=== PATIENT | male | born 1965 | race Caucasian/White ===

== ENCOUNTER 2018-03-24 22:50 | Emergency (ER) | payer OTHER ==
[~2018-03-24] VITALS: Ht 180.3 cm; Wt 83.0 kg
[~2018-03-24 22:50] MED LIST: ALEVE PO; ALLEGRA ALLERG180 MG PO; AXIRON30 MG/1.5; SOMA350 MG PO; SUDAFED 12 HOU120 MG PO; TYLENOL COLD M1 EAC2 PO; TYLENOL WITH C1 EACH PO; VITA-C120 GM PO
--- OUTSIDE RECORDS SUMMARY | 2018-03-24 22:53 | XMS REPORT | Clinical Summary ---
Author Author [facility] Address Unknown Phone Unavailable Care Team Providers Care Mgmt Analyst Name Role Phone Kit Vargas MD PCP Allergies Not on File Current Medications Not on file Active Problems Not on file Social History Tobacco Use Types Packs/Day Years Used Date Never Assessed Sex Assigned at Date Recorded Not on file Last Filed Vital Signs Not on file Plan of Treatment Health Maintenance Due Date Last Done Comments COLON CANCER SCREENING 2014 SHINGRIX VACCINE (#1) 2014 INFLUENZA VACCINE 05/29/2018 07/28/2016, 08/06/2014, 08/01/2011 Results Not on fileafter 03/23/2017 Insurance Payer Benefit Subscriber ID Type Phone Address Plan / Group [facility] xxxxxxxxx HMO/PPO THCARE CHOICE/CHO ICE + Home: [id number] [place] [phone]
[2018-03-24 23:57] VITALS: BP 139/88
== END 2018-03-25 00:05 | disposition home or self-care (01) ==
LOC: ER 22:50
DX: I10 Essential (primary) hypertension (principal)
CPT/HCPCS: 99283

== ENCOUNTER 2019-06-09 01:15 | Emergency (ER) | payer OTHER ==
[~2019-06-09] VITALS: Ht 180.3 cm; Wt 83.0 kg
--- OUTSIDE RECORDS SUMMARY | 2019-06-09 01:19 | XMS REPORT | Clinical Summary ---
Author Author [facility] Address Unknown Phone Unavailable Care Team Providers Care Thermal Cutter Hand Name Role Phone Horace Vargas MD PCP Unavailable Allergies Not on File Medications Not on file Active Problems Not on file Social History Date Tobacco Use Types Packs/Day Years Used Never Assessed Sex Assigned at Date Recorded Not on file Industry Job Start Date Occupation Not on file Not on file Not on file Travel End Travel History Travel Start No recent travel history available. Last Filed Vital Signs Not on file Plan of Treatment Health Maintenance Due Date Last Done Comments COLONOSCOPY SCREENING 2014 SHINGLES VACCINES (#1) 2014 INFLUENZA VACCINE 05/29/2019 07/28/2016, 08/06/2014 Results Not on fileafter 06/08/2018 Insurance Type Payer Benefit Subscriber ID Effective Phone Address Plan / Dates Group HMO/PPO [facility] xxxxxxxxx 2016-P THCARE resent CHOICE/CHO ICE + Advance Directives Patient has advance care planning documents on file. For more information, shiela schmitz contact: [facility] [address] [place] [id number]
--- OUTSIDE RECORDS SUMMARY | 2019-06-09 01:20 | XMS REPORT | Summary of Care ---
Author Author [facility] Organization [facility] Address Unknown Phone Unavailable Encounter HQ Nahed_gómez(FIN) [id number] Date(s): 09/12/17 - 09/13/17 [facility] [address] [facility] [address] [phone] Vital Signs No data available for this section Problem List Condition Effective Dates Status Health Status Informant HTN Resolved (hypertension)(Confi rmed) None of the Resolved time(Confirmed) Neck pain(Confirmed) Resolved Obesity(Confirmed) Active Allergies, Adverse Reactions, Alerts Substance Reaction Severity Status ibuprofen Active Medications No data available for this section Results No data available for this section Immunizations No data available for this section Procedures Procedure Date Related Diagnosis Body Site Injection into facet joint of cervical spine 01/23/17 using fluoroscopic guidance Operation Social History Social History Type Response Substance Abuse Use: None. Alcohol Current Smoking Status Never smoker; Exposure to Tobacco Smoke None; Cigarette Smoking Last 365 Days No; Reg Smoking Cessation Counseling No Assessment and Plan No data available for this section
--- OUTSIDE RECORDS SUMMARY | 2019-06-09 01:20 | XMS REPORT | Continuity of Care Document ---
Author Author [employer] Address Unknown Phone Unavailable Care Team Providers Care Railroad Car Inspector Name Role Phone [email or web address] Unavailable Unavailable Problems Problem Status Onset Date Classification Date Reported Comments Source Postlaminectomy syndrome, not elsewhere classified 11/27/2017 02/28/2018 [facility] M96.10 Active 09/24/2017 [facility] UNK Active 01/10/2017 [facility] M62.81 - MUSCLE WEAKNESS (GENERALIZED) M Active 05/24/2016 [facility] [place] M96.1 Active 10/29/2014 [facility] 338 - PAIN NEC Active 08/25/2014 [facility] [place] Weakness 02/28/2018 [facility] Anxiety states Resolved Problem 04/25/2019 [facility] Hemorrhoids, external Resolved Problem 04/25/2019 [facility] HTN (Confirmed) Resolved Problem 04/25/2019 [facility], [facility], [facility] Impotence, organic Resolved Problem 04/25/2019 [facility] Major depressive disorder, single episode Resolved Problem 04/25/2019 [facility] None of the time Resolved Problem 04/25/2019 [facility], [facility], RANJANAD Rigoberto, [facility], [facility] [place] Neck pain Resolved Problem 04/25/2019 [facility], [place], [facility], [facility] [place] Obesity Active Problem 04/25/2019 [facility], [facility] [place], [facility], [facility] [place], [facility], [facility] [place] Pneumonia Resolved Problem 04/25/2019 [facility] Decreased libido Resolved Problem 04/25/2019 [facility] Tinnitus Resolved Problem 04/25/2019 [facility] Hypertension Active Problem 03/25/2018 [facility] NECK Active [facility] [place] CERVICAL Active [facility] [place] Medications Medication Details Route Status Patient Instructions Ordering Provider Order Date Source testosterone cypionate 100 MG/ML Injectable Solution [Depo-testosterone] 1/2 mL, IM, qWeek, # 10 mL, 0 Refill(s) Active 03/04/2019 [facility] Albuterol 0.833 MG/ML / Ipratropium [place] 0.167 MG/ML Inhalant Solution 3 mL, Route: NEB, Drug Form: SOLN, Dosing Weight 91.364, kg, ONCE, STAT, Start date: 01/16/17 8:32:00 CDT, Stop date: 01/16/17 8:32:00 CDTNotes: (Same as: Samia) Inactive 01/16/2017 [facility] Sodium Chloride 0.154 MEQ/ML Injectable Solution 500 mL, Rate: 25 ml/hr, Infuse over: 20 hr, Route: IV, Dosing Weight 91.364 kg, Total Volume: 500, Start date: 01/16/17 8:32:00 CDT, Duration: 30 day, Stop date: 02/15/17 8:31:00 CDT Inactive 01/16/2017 [facility] Acetaminophen With Codeine (Tylenol With Codeine #3 Tablet) 1 Each Tablet, 300 Mg Oral Every 6 Hours as needed for Pain Active 07/06/2016 [facility] Carisoprodol (Soma) 350 Mg Tablet, 350 Mg Oral Every 6 Hours as needed for Muscle Spasms Active 07/06/2016 [facility] Pseudoephedrine Hcl (Sudafed 12 Hour) 120 Mg Tablet.er, 120 Mg Oral As Needed Active 07/06/2016 [facility] Aleve , 220 Mg Oral As Needed Active 03/12/2015 [facility] Ascorbic Acid (Angie-C) 120 Gm Crystals, 1 Dose Oral Daily Active 03/09/2015 [facility] D-Methorphan/Pe/Acetaminophen (Tylenol Cold Multi-Symp Caplet) 1 Each Tablet, Oral As Needed Active 03/09/2015 [facility] Fexofenadine Hcl (Johana Allergy) 180 Mg Tablet As Needed Active [facility] Testosterone (Axiron) 30 Mg/1.5 Ml flare maker Active [facility] Allergies, Adverse Reactions, Alerts Substance Category Reaction Severity Reaction type Status Date Reported Comments Source Ibuprofen RASH Unknown Allergy to Substance Active 08/27/2016 [facility] ibuprofen Assertion Drug allergy Active [facility] Immunizations No Data Provided for This Section Results No Data Provided for This Section Pathology Reports No Data Provided for This Section Diagnostic Reports Report Value Date Source Spine cervical wo contrast MRI EXAM: MRI CERVICAL SPINE WITHOUT CONTRAST DATE: 08/14/2016 12:00 AM CDT INDICATION: M54.2 CERVICALGIA COMPARISON: Magnetic resonance imaging cervical spine 05/27/2016. TECHNIQUE: Multiplanar, multisequence noncontrast imaging of the cervical spine. IV contrast: None. FINDINGS: The craniovertebral junction has a normal appearance. The cerebellar tonsils are in the normal position. The cervical vertebral bodies are normal in height and unchanged in alignment. 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 Prior anterior fusion from C4 through C7 with a fixation plate and screws. C2-C3: No significant spinal canal or neural foraminal stenosis. Bilateral facet arthropathy. C3-C4: Mild loss of disc height. Posterior annular fissures with 3.5 mm posterior disc osteophyte complex lateralizes slightly to the right. Mild flattening of the ventral cord contour. Uncovertebral and facet hypertrophy with moderate bilateral neural foraminal stenoses. The thecal sac measures 8mm in midline AP dimension with mild to moderate spinal canal stenosis. C4-C5: ACDF without evidence of hardware failure. Posterior osteophytes mildly indent the ventral thecal sac. Right greater than left uncovertebral and facet hypertrophy. Moderate to severe right neural foraminal stenosis. The thecal sac measures 9 to 10 mm in midline AP dimension. C5-C6: ACDF without evidence of hardware failure. Posterior osteophytes mildly indent the ventral thecal sac. Right greater than left uncovertebral hypertrophy. Neural foramina are patent. The thecal sac measures 9 mm in midline AP dimension C6/C7: ACDF without evidence of hardware failure. Posterior osteophytes mildly indent the ventral thecal sac. The thecal sac measures 9 mm in midline AP dimension. Uncovertebral and facet hypertrophy. Severe left and mild right neural foraminal stenosis. C7-T1: No significant spinal canal stenosis. Minimal disc bulge. Bilateral facet arthropathy. Mild foraminal stenoses. Cervical cord is normal in signal intensity. IMPRESSION: Stable C3-C4 spinal canal stenosis with mild flattening the ventral cord contour. No cord signal abnormality. Anterior fusion from C4 through C7 with no significant interval change. 08/22/2016 [facility] [place] Spine cervical wo contrast MRI EXAM: MRI CERVICAL SPINE WITHOUT CONTRAST DATE: 05/21/2016 8:26 AM CDT CLINICAL INDICATION: . Neck pain, right arm weakness, history of surgery TECHNIQUE: Multiplanar, multisequence MRI cervical spine without IV contrast COMPARISON: Cervical magnetic resonance imaging of 03/01/2015 FINDINGS: Cervical vertebral bodies have normal height, shape and alignment. No worrisome marrow signal abnormality is identified. Cerebellar tonsils are above foramen magnum. Cervical cord signal is normal and homogenous. Paravertebral soft tissues are within normal limits. Disc levels, spinal canal, neural foramina: The patient has short cervical pedicles Craniocervical junction: No stenosis C1-C2: No subluxation, ligamentous pannus formation, or stenosis C2-C3: Intervertebral disc height and signal are maintained. Left facets are enlarged. There is no stenosis. C3-C4: Loss of intervertebral disc height and signal with moderate diffuse disc bulge and annular fissuring. Facets are enlarged asymmetric to left. Central canal measures 7 mm with disc flattening the ventral cord contour. There is no cortical abnormality. There is moderate narrowing of the neural foramina, asymmetric to the left. C4-C5: ACDF without hardware failure. There is right uncinate hypertrophy and right facet hypertrophy. Central canal measures 10 mm. There is moderate to severe narrowing of the right neural foramen. C5-C6: ACDF without hardware failure. Circumferential osteophytes and right uncinate hypertrophy. Mild left facet of hypertrophy. Central canal measures 9 mm. Neural foramina are patent. C6-C7: ACDF without hardware failure. Circumferential disc osteophyte complex. Central canal measures 9 mm, and there is no mass effect on the cord. There is mild right and severe left neural foramen stenosis. C7-T1: Intervertebral disc height and signal are maintained. Posterior elements are normal. There is no stenosis. IMPRESSION: 1. Stable C3-C4 central canal stenosis with flattening cord contour, but no evidence of compressive myelopathy. 2. C4-C5-C5 and C6-C7 ACDF without hardware failure or substantial change in dimensions of the central canal comparison 03/01/2015 3. Foramen stenosis described by level above 05/27/2016 [facility] [place] Spine cervical comp w obl-flx/ext DX CERVICAL SPINE SERIES CLINICAL HISTORY: Neck pain. COMPARISON IMAGING: None. FINDINGS: 7 views of the cervical spine were obtained. The patient is status post C4-C7 ACDF. No obvious complication is noted. Vertebral body heights and alignment are maintained with flexion, extension, and neutral positioning. Bony neural foramina are relatively patent. No obvious fracture or subluxation is identified. Prevertebral soft tissues are unremarkable. IMPRESSION: Status post ACDF without obvious complication. 03/01/2015 [facility] [place] Spine cervical wo contrast MRI MRI CERVICAL SPINE WITHOUT CONTRAST TECHNIQUE: Multiplanar multisequence imaging of the cervical spine was performed without administration of intravenous gadolinium. COMPARISON: 08/27/2014 MRI exam. FINDINGS: Multilevel disc desiccation is seen. C2-C3: Unremarkable. C3-C4: More prominent right paracentral disc osteophyte complex measuring 4 mm is seen with mild central canal stenosis and mass effect on the cervical cord. Moderate right foraminal stenosis is present. C4-C5: Post ACDF changes with smaller disc osteophyte complex. Mild central canal stenosis and mass effect on the cervical cord present. Stable severe right foraminal stenosis and mild left foraminal stenosis. C5-C6: Post ACDF changes. Less prominent right asymmetric disc osteophyte complex measuring 4.3 mm with mild central canal stenosis and mild mass effect on the cervical cord. There is stable moderate to severe right foraminal stenosis. C6-C7: Post ACDF. Less prominent dorsal disc osteophyte complex with mild to moderate central canal stenosis and mild mass effect on the cervical cord. There is stable severe left foraminal stenosis and moderate to severe right foraminal stenosis. C7-T1: Unremarkable. Mild cervical cord myelomalacia is again suspected at the C4 and C5 levels. No syringomyelia. IMPRESSION: 1. Multilevel disc degenerative disease and spondylosis. 2. C4-C5 to C6-C7 ACDF. Improved central canal stenosis at these levels. 3. More prominent C3-C4 degenerative changes with mild central canal stenosis. 4. Multilevel significant foraminal stenosis as above. 03/01/2015 [facility] [place] Spine cervical wo contrast MRI MRI CERVICAL SPINE WITHOUT CONTRAST TECHNIQUE: Multiplanar multisequence imaging of the cervical spine was performed without administration of intravenous gadolinium. COMPARISON: No prior exam. FINDINGS: Multilevel disc desiccation is seen. C2-C3: Unremarkable. C3-C4: Right paracentral broad-based disc protrusion measuring approximately 2.3 mm in the AP dimension is seen with mild central canal stenosis and mass effect on the cervical cord. No foraminal stenosis identified. C4-C5: Disc bulge with Central broad-based disc protrusion measuring 3.9 mm in the AP dimension is seen with moderate central canal stenosis. The central canal measures 7 mm in the AP dimension. There is moderate mass effect on the cervical cord. Mild left foraminal stenosis and moderate right foraminal stenosis are present. C5-C6: Right paracentral prominent disc protrusion measuring 6.3 mm in the AP dimension is seen with significant mass effect on the cervical cord and results in moderate to severe central canal stenosis. Significant right lateral recess stenosis is present with severe right foraminal stenosis. C6-C7: Left asymmetric dorsal disc osteophyte complex is present measuring 4.7 mm in the AP dimension with moderate to severe central canal stenosis with the central canal measuring 7 mm in the AP dimension. Moderate mass effect on the cervical cord is seen. Severe left foraminal stenosis and moderate right foraminal stenosis present. Modic type I endplate and subchondral marrow changes are present. C7-T1: Unremarkable. Mild increased T2 weighted signal is seen within the cervical cord at the C5 and C6 levels compatible with mild myelopathy. IMPRESSION: 1. Multilevel disc degenerative disease and spondylosis. 2. Significant degenerative changes at the C3-C4 to C6-C7 levels with moderate to severe central canal stenosis and mass effect on the cervical cord. Mild cervical cord myelopathy suspected at the C5 and C6 levels. 3. Multilevel significant foraminal stenosis. 08/27/2014 [facility] Consultation Notes No Data Provided for This Section Discharge Summaries No Data Provided for This Section History and Physicals No Data Provided for This Section Vital Signs Vital Sign Value Date Comments Source Weight 85.057 04/22/2019 [facility] BMI Calculated 26.15 04/22/2019 [facility] Height 180.34 cm 04/22/2019 [facility] BMI Calculated 24.9 03/04/2019 [facility] Weight 80.966 03/04/2019 [facility] Height 180.34 cm 03/04/2019 [facility] Systolic (mm Hg) 110 01/16/2017 [facility] Diastolic (mm Hg) 74 01/16/2017 [facility] Respitory Rate 20 01/16/2017 [facility] Systolic (mm Hg) 84 01/16/2017 [facility] Diastolic (mm Hg) 54 01/16/2017 [facility] Respitory Rate 17 01/16/2017 [facility] Systolic (mm Hg) 85 01/16/2017 [facility] Diastolic (mm Hg) 49 01/16/2017 [facility] Respitory Rate 13 01/16/2017 [facility] Height 180.34 cm 01/15/2017 [facility] Weight 91.364 01/15/2017 [facility] BMI Calculated 28.09 01/15/2017 [facility] Encounters Location Location Details Encounter Type Encounter Number Reason For Visit Attending Provider ADM Date DC Date Status Source [facility] [place] [facility] [id number] Santiago Hammond 08/27/2014 08/28/2014 [facility] [place] [place] [facility] [id number] Pino Rowe 03/01/2015 03/02/2015 [facility] [place] Outpatient [id number] GAURI BAE 05/19/2016 Active [facility] [place] [facility] [id number] Pj Caldera 05/27/2016 05/28/2016 [facility] [place] Outpatient [id number] PJ CALDERA 05/31/2016 Active [facility] [place] OP Therapy Patients [id number] Pj Caldera 06/15/2016 07/15/2016 [facility] [place] [facility] Patients [id number] Pj Caldera 07/18/2016 08/17/2016 [facility] [place] Outpatient [id number] PJ CALDERA 08/14/2016 Active [facility] [place] Out[facility] Di[facility] Services [id number] Pj Caldera 08/22/2016 08/23/2016 [facility] [place] Outpatient [id number] PJ CALDERA 08/30/2016 Active [facility] Outpatient [id number] MENDEL WHITAKER 08/30/2016 Active [facility] Outpatient [id number] MENDEL WHITAKER 08/31/2016 Active [facility] Outpatient [id number] MENDEL WHITAKER 09/27/2016 Active [facility] [place] OP Therapy Patients [id number] Mendel Whitaker 10/10/2016 11/09/2016 [facility] [place] Outpatient [id number] MENDEL WHITAKER 11/01/2016 Active [facility] Outpatient [id number] PJ CALDERA 11/01/2016 Active [facility] Outpatient [id number] PJ DAMIR 11/13/2016 Active [facility] Outpatient [id number] MENDEL WHITAKER 12/15/2016 Active [facility] Outpatient [id number] MENDEL WHITAKER 01/12/2017 Active [facility] Outpatient [id number] Christiano Gonzales 01/16/2017 01/16/2017 [facility] Outpatient [id number] ISAIAH CHAUHAN 01/23/2017 Active [facility] Outpatient [id number] MENDEL WHITAKER 02/16/2017 Active [facility] Outpatient [id number] MENDEL WHITAKER 03/30/2017 Active [facility] Phone Message [id number] 09/12/2017 09/14/2017 [facility] [place] Phone Message [id number] 09/13/2017 09/15/2017 [facility] Therapy Patients [id number] Ravin Alan 09/24/2017 10/24/2017 [facility] Phone Message [id number] 10/12/2017 10/14/2017 [facility] [id number] MENDEL WHITAKER 10/17/2017 Active [facility] Ambulatory Pre-Reg [id number] Mendel Whitaker 10/17/2017 10/17/2017 [facility] OP Therapy Patients [id number] Ravin Alan 10/24/2017 11/23/2017 [facility] Departed Emergency Room [id number] SUSAN CRUZ MD 03/24/2018 03/25/2018 [facility] Outpatient [id number] Rodrigo Rao 03/04/2019 Active [facility] [place] Outpatient [id number] Trevin Fletcher 03/04/2019 03/05/2019 [facility] Outpatient [id number] Rodrigo Rao 04/22/2019 Active Andres Sosa [facility] [place] Outpatient [id number] Trevin Fletcher 04/22/2019 04/23/2019 [facility] Outpatient [id number] Rodrigo Rao 07/15/2019 Active And[facility] Sosa Procedures Procedure Code Date Perfomer Comments Source Injection into facet joint of cervical spine using fluoroscopic guidance 047750785 01/23/2017 [facility] Injection into facet joint of cervical spine using fluoroscopic guidance [id number] 01/23/2017 [facility] Injection into facet joint of cervical spine using fluoroscopic guidance [id number] 01/23/2017 [facility] Operation [id number] [facility] Operation [id number] [facility] [place] Operation [id number] [facility] Operation [id number] [facility] [place] Operation [id number] [facility] [place] Operation [id number] [facility] Operation [id number] [facility] Assessment and Plan No Data Provided for This Section Plan of Care Plan of Care Date Source Discharge Date 03/25/18 12:05am Disposition HOME, SELF-CARE Condition at Discharge Stable Instructions/Education Provided Hypertension Forms Provided Work/School Excuse Prescriptions See Medication Section Referrals OSKAR HOLLAND Address: [address] [place] [address] Additional Instructions/Education FOLLOW UP WITH PRIMARY CARE PHYSICAN SCHEDULED. 03/25/2018 [facility] Social History Social History Date Source Social History Problem Response Recorded Date/Time Onset Date Status Hx Psychiatric Problems No 03/11/2015 10:36am Not Applicable Not Applicable Hx Eating Disorder No 03/11/2015 10:36am Not Applicable Not Applicable Hx Substance Use Disorder No 03/11/2015 10:36am Not Applicable Not Applicable Hx Depression No 03/11/2015 10:36am Not Applicable Not Applicable Hx Alcohol Use No 03/11/2015 10:36am Not Applicable Not Applicable Hx Substance Use Treatment No 03/11/2015 10:36am Not Applicable Not Applicable Hx Physical Abuse No 03/11/2015 10:36am Not Applicable Not Applicable 03/25/2018 [facility] Social History TypeResponse Substance Abuse Use: None. Alcohol Current Smoking Status Never smoker; Exposure to Tobacco Smoke None; Cigarette Smoking Last 365 Days No; Reg Smoking Cessation Counseling No 01/12/2017 [facility] Social History TypeResponse Substance Abuse Use: None. Alcohol Current Smoking Status Never smoker; Exposure to Tobacco Smoke None; Cigarette Smoking Last 365 Days No; Reg Smoking Cessation Counseling No entered on: 03/30/17 01/12/2017 [facility] Social History TypeResponse Substance Abuse Use: None. Alcohol Current Smoking Status Never smoker; Exposure to Tobacco Smoke None; Cigarette Smoking Last 365 Days No; Reg Smoking Cessation Counseling No entered on: 04/22/19 01/12/2017 [facility] Social History TypeResponse Substance Abuse Use: None. Alcohol Current Smoking Status Never smoker; Exposure to Tobacco Smoke None; Cigarette Smoking Last 365 Days No; Reg Smoking Cessation Counseling No 01/12/2017 [facility] Social History TypeResponse Substance Abuse Use: None. Alcohol Current Smoking Status Never smoker; Exposure to Tobacco Smoke None; Cigarette Smoking Last 365 Days No; Reg Smoking Cessation Counseling No 11/01/2016 [facility] Social History TypeResponse Smoking Status Never smoker; Exposure to Tobacco Smoke None; Cigarette Smoking Last 365 Days No; Reg Smoking Cessation Counseling No 08/14/2016 [facility] [place] Social History TypeResponse Smoking Status Never smoker; Exposure to Tobacco Smoke None; Cigarette Smoking Last 365 Days No; Reg Smoking Cessation Counseling No 05/19/2016 [facility] No data available for this section 03/02/2015 [facility] Diogo [place] Family History No Data Provided for This Section Advance Directives Order Name Results Value Date Source Advance Directives Advance Directives Directive Response Recorded Date/Time Does the patient have an advance directive? No 03/11/15 10:36am If yes, is advance directive on file with [facility]? No 03/11/15 10:36am If not on file with [facility] will patient provide a copy? No 08/27/16 11:32pm 03/25/2018 [facility] Functional Status No Data Provided for This Section
--- OUTSIDE RECORDS SUMMARY | 2019-06-09 01:20 | XMS REPORT | Summary of Care ---
Author Author [facility] Address Unknown Phone Unavailable Encounter [facility] Encntr_gómez(FIN) [id number] Date(s): 10/10/16 - 11/08/16 [facility] Discharge Disposition: Home or Self Care Attending Physician: Kyaw Price MD Vital Signs No data available for this section Problem List Condition Effective Dates Status Health Status Informant None of the Resolved time(Confirmed) Neck pain(Confirmed) Resolved Obesity(Confirmed) Active Allergies, Adverse Reactions, Alerts Substance Reaction Severity Status ibuprofen Active Medications No data available for this section Results No data available for this section Immunizations No data available for this section Procedures Procedure Date Related Diagnosis Body Site Operation Social History Social History Type Response Substance Abuse Use: None. Alcohol Current Smoking Status Never smoker; Exposure to Tobacco Smoke None; Cigarette Smoking Last 365 Days No; Reg Smoking Cessation Counseling No Assessment and Plan No data available for this section
--- OUTSIDE RECORDS SUMMARY | 2019-06-09 01:20 | XMS REPORT | Summary of Care ---
Author Organization Unknown Address Unknown Phone Unavailable Encounter [facility]uck[facility]mez([facility]) [id number] Date(s): 08/27/14 - 08/27/14 [facility] Outpatient Imaging - [address] [address] [place] Discharge Disposition: Home Physician Attending: Santiago Hammond MD Reason for Visit 338 - PAIN NEC Problem List No data available for this section Allergies, Adverse Reactions, Alerts No data available for this section Medications No data available for this section Medications Administered During Your Visit No data available for this section Immunizations No data available for this section
--- OUTSIDE RECORDS SUMMARY | 2019-06-09 01:20 | XMS REPORT | Summary of Care ---
Author Author [facility] [place] Organization [facility] [place] Address Unknown Phone Unavailable Encounter HQ Encntr_gómez(FIN) [id number] Date(s): 05/27/16 - 05/27/16 [facility] [place] [address] [place] [address] [phone] Discharge Disposition: Home or Self Care Attending Physician: Pj Caldera MD Vital Signs No data available for this section Problem List Condition Effective Dates Status Health Status Informant Obesity(Confirmed) Active Allergies, Adverse Reactions, Alerts No data available for this section Medications No data available for this section Results No data available for this section Immunizations No data available for this section Procedures Procedure Date Related Diagnosis Body Site Operation Social History Social History Type Response Smoking Status Never smoker; Exposure to Tobacco Smoke None; Cigarette Smoking Last 365 Days No; Reg Smoking Cessation Counseling No Assessment and Plan No data available for this section
--- OUTSIDE RECORDS SUMMARY | 2019-06-09 01:20 | XMS REPORT | Summary of Care ---
Author Author [facility] Address Unknown Phone Unavailable Encounter HQ Padillantr_gómez(FIN) [phone] Date(s): 09/13/17 - 09/14/17 [facility] [address], [address] [place], [place] [address] [phone] Vital Signs No data available for this [...]
--- OUTSIDE RECORDS SUMMARY | 2019-06-09 01:20 | XMS REPORT | Summary of Care ---
Author Author [facility] Outpatient Imaging [facility] Outpatient Imaging [facility] Address Unknown Phone Unavailable Encounter HQ Nahed_gómez(FIN) [id number] Date(s): 08/22/16 - 08/22/16 [facility] Outpatient Imaging [facility] [address] [place] [address]- Discharge Disposition: Home or Self Care Attending Physician: Pj Caldera MD Vital Signs No data available for this section Problem List Condition Effective Dates Status Health Status Informant None of the Resolved time(Confirmed) Obesity(Confirmed) Active Allergies, Adverse Reactions, Alerts Substance Reaction Severity Status NKDA Active Medications No data available for this [...]
--- OUTSIDE RECORDS SUMMARY | 2019-06-09 01:20 | XMS REPORT | Summary of Care ---
Author Author [facility] Organization [facility] Address Unknown Phone Unavailable Encounter HQ Tuckerr_gómez(FIN) [phone] Date(s): 03/04/19 - 03/04/[address] [facility] [address] [place] [address] [phone] Discharge Disposition: Home or Self Care Attending Physician: Trevin Fletcher MD Vital Signs Most recent to 1 oldest [Reference Range]: Height 180.34 cm (03/04/19 4:14 PM) Weight 80.966 kg (03/04/19 4:14 PM) Body Mass Index 24.9 m2 (03/04/19 4:14 PM) Problem List Condition Effective Dates Status Health Status Informant Anxiety Resolved states(Confirmed) Hemorrhoids, Resolved external(Confirmed) HTN Resolved (hypertension)(Confi rmed) Impotence, Resolved organic(Confirmed) Major depressive Resolved disorder, single episode(Confirmed) None of the Resolved time(Confirmed) Neck pain(Confirmed) Resolved Obesity(Confirmed) Active Pneumonia(Confirmed) Resolved Decreased Resolved libido(Confirmed) Tinnitus(Confirmed) Resolved Allergies, Adverse Reactions, Alerts Substance Reaction Severity Status ibuprofen Active Medications Depo-Testosterone 100 mg/mL intramuscular solution 1/2 mL, IM, qWeek, # 10 mL, 0 Refill(s) Start Date: 03/04/19 Status: Ordered Results No data available for this section Immunizations No data available for this section Procedures Procedure Date Related Diagnosis Body Site Status Injection into facet joint of cervical spine 01/23/17 Completed using fluoroscopic guidance Operation Completed Social History Social History Type Response Substance Abuse Use: None. Alcohol Current Smoking Status Never smoker; Exposure to Tobacco Smoke None; Cigarette Smoking Last 365 Days No; Reg Smoking Cessation Counseling No entered on: 03/04/19 Assessment and Plan No data available for this section
--- OUTSIDE RECORDS SUMMARY | 2019-06-09 01:20 | XMS REPORT | Summary of Care ---
Author Author [facility] Organization [facility] Address Unknown Phone Unavailable Encounter HQ Jesus Manuel(FIN) [phone] Date(s): 10/24/17 - 11/22/17 [facility] Encounter Diagnosis Postlaminectomy syndrome, not elsewhere classified (Final) - 11/27/17 Weakness (Final) - Discharge Disposition: Home or Self Care Attending Physician: Ravin Alan MD Vital Signs No data available for [...] Smoking Cessation Counseling No entered on: 03/30/17 Assessment and Plan No data available for this section
--- OUTSIDE RECORDS SUMMARY | 2019-06-09 01:20 | XMS REPORT | Summary of Care ---
Author Author [facility] Address Unknown Phone Unavailable Encounter HQ Encntr_alipaige([facility]) [phone] Date(s): 06/15/16 - 07/14/16 [facility] Discharge Disposition: Home or Self Care Attending [...]
--- OUTSIDE RECORDS SUMMARY | 2019-06-09 01:20 | XMS REPORT | Summary of Care ---
Author Author Kim Sheriff M.A. Organization Unknown Address [facility] Phone Unavailable Care Team Providers Care Guardian Ad Litem Name Role Phone MENDEL SANDY N.P. Unavailable Unavailable Kim Sheriff M.A. Unavailable Unavailable MAICOL DEY Unavailable Unavailable SKYLER SANCHEZ VA, OSKAR BHARDWAJ Unavailable Unavailable OSKAR HOLLAND M.D. 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, N52.9) Status: Active Dyspnea and respiratory abnormalities (786.09, R06.00) Status: Active Rotator cuff strain (840.4, S46.019A) Status: Active Acute maxillary sinusitis (461.0, J01.00) Status: Active Flu vaccine need (V04.81, Z23) Status: Active Neck pain (723.1, M54.2) Status: Active Allergic rhinitis (477.9, J30.9) Status: Active Hypoglycemia (251.2, E16.2) Status: Active Abdominal pain (789.00, R10.9) Status: Active Screening for colon cancer (V76.51, Z12.11) Status: Active Right shoulder pain (719.41, M25.511) Status: Active Ulcer of foot (707.15, L97.509) Status: Active Other dermatitis (692.9, L30.8) Status: Active Acute upper respiratory infection (465.9, J06.9) Status: Active 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, 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: Active Impaired fasting glucose (790.21, R73.01) Status: Active Essential hypertension (401.9, I10) Status: Active Need for hepatitis C screening test (V73.89, Z11.59) Status: Active Encounter for screening for HIV (V73.89, Z11.4) Status: Active Need for shingles vaccine (V04.89, Z23) Status: Active Influenza vaccine needed (V04.81, Z23) Status: Active Need for Tdap vaccination (V06.1, Z23) Status: Active Low testosterone in male (790.99, R79.89) Status: Active Prediabetes (790.29, R73.03) Status: Active Elevated bilirubin (277.4, R17) Status: Active Medications Name Dates Details Johana Allergy 180 MG Oral Tablet TAKE 1 TABLET DAILY. MENDEL SANDY N.P. * Start : 23-Jun-2014 Active Bystolic 5 MG Oral Tablet TAKE 1 TABLET DAILY. * Refills: 0 Active Lisinopril 5 MG Oral Tablet TAKE 1 TABLET DAILY * Refills: 0 Active Testosterone Enanthate 200 MG/ML Injection Solution * Refills: 0 GALLO P.Colin., MAICOL * Start : 23-Jan-2019 Active Aspirin 81 MG Oral Tablet Delayed Release * Refills: 0 GALLO Kannan.Colin.MAICOL * Start : 23-Jan-2019 Active Shingrix 50 MCG Intramuscular Suspension Reconstituted Administer at pharmacy as directed * Quantity: 1 Refills: 0 GALLO Kannan.Colin.MAICOL * Start : 25-Feb-2019 Active Allergies and Adverse Reactions Name Dates Details ibuprofen (Allergy) Status: Active Past Medical History Name Dates Details History of actinic keratosis (V13.3, Z87.2) Status: Resolved History of Contact dermatitis due to poison evi (692.6, L23.7) Status: Resolved History of Microhematuria (599.72, R31.29) Status: Resolved History of vertigo (V12.49, Z87.898) Status: Resolved Procedures Procedure Dates Details [[facility]] HEPATIC FUNCTION PANEL Date: 24-Mar-2019 [QL] HEMOGLOBIN A1c Date: 24-Mar-2019 History Of Prior Surgery Completed Immunization Name Dates Details Influenza on: 01-Aug-2011 Fluzone INJ Lot #: [id number] on: 06-Aug-2014 Fluzone Quadrivalent 0.5 ML Intramuscular Suspension Prefilled Syringe Lot #: [id number] on: 28-Jul-2016 Tdap Lot #: [id number] on: 25-Feb-2019 Fluzone Quadrivalent 0.5 ML Intramuscular Suspension Lot #: [id number] on: 25-Feb-2019 Family History Name Dates Details Family history of Diabetes Mellitus (V18.0) Status: Active Social History Name Dates Details - Status: Name Dates Details Current every day smoker Never smoker Vital Signs Date Test Result Details No Known Vitals to report Results Date Description Value Details [id number] [QL] LIPID PANEL CHOLESTEROL, TOTAL 196 mg/dl (Normal) Range: <200 HDL CHOLESTEROL 44 mg/dl (Normal) Range: >40 TRIGLYCERIDES 69 mg/dl (Normal) Range: <150 LDL-CHOLESTEROL 136 {MG/DL__CAL} (Above high threshold) Comments: Reference range: <100 Desirable range <100 mg/dL for primary prevention; <70 mg/dL for patients with CHD or diabetic patients with > or=2 CHD risk factors. LDL-C is now calculated using the Brian calculation, which is a validated novel method providing better accuracy than the Friedewald equation in the estimation of LDL-C. Dionte SS et al. TOMASZ. 2013;310(19): 7077-3641 (http:/ /education.Nobl.Shicon/faq/KBU094) CHOL/HDLC RATIO 4.5 {CALC} (Normal) Range: <5.0 NON HDL CHOLESTEROL 152 {MG/DL__CAL} (Above high threshold) Range: <130 Comments: For patients with diabetes plus 1 major ASCVD risk factor, treating to a non-HDL-C goal of <100 mg/dL (LDL-C of <70 mg/dL) is considered a therapeutic option. [id number] [[facility]] CMP W/EGFR GLUCOSE 104 mg/dl (Above high threshold) Range: 65-99 Comments: Fasting reference interval For someone without known diabetes, a glucose valuebetween 100 and 125 mg/dL is consistent withprediabetes and should be confirmed with afollow-up test. UREA NITROGEN (BUN) 21 mg/dl (Normal) Range: 7-25 CREATININE 1.06 mg/dl (Normal) Range: 0.70-1.33 Comments: For patients >49 years of age, the reference limitfor Creatinine is approximately 13% higher for peopleidentified as -[place]cu[place]. eGFR NON- 79 {ML/MIN/1.7} (Normal) Range: > OR=60 eGFR 91 {ML/MIN/1.7} (Normal) Range: > OR=60 BUN/CREATININE RATIO NOT APPLICABLE {CALC} Range: 6-22 SODIUM 137 mmol/L (Normal) Range: 135-146 POTASSIUM 4.3 mmol/L (Normal) Range: 3.5-5.3 CHLORIDE 102 mmol/L (Normal) Range: 98-110 CARBON DIOXIDE 27 mmol/L (Normal) Range: 20-32 CALCIUM 9.3 mg/dl (Normal) Range: 8.6-10.3 PROTEIN, TOTAL 6.7 g/dl (Normal) Range: 6.1-8.1 ALBUMIN 4.4 g/dl (Normal) Range: 3.6-5.1 GLOBULIN 2.3 {G/DL__CALC} (Normal) Range: 1.9-3.7 ALBUMIN/GLOBULIN RATIO 1.9 {CALC} (Normal) Range: 1.0-2.5 BILIRUBIN, TOTAL 1.6 mg/dl (Above high threshold) Range: 0.2-1.2 ALKALINE PHSPHATASE 29 u/l (Below low threshold) Range: 40-115 AST 15 u/l (Normal) Range: 10-35 ALT 14 u/l (Normal) Range: 9-46 [id number] [[facility]] HEMOGLOBIN A1c Comments: REPORT COMMENT:FASTING:YES HEMOGLOBIN A1c 5.8 {%_of_total} (Above high threshold) Range: <5.7 Comments: For someone without known diabetes, a hemoglobin A1c value between 5.7% and 6.4% is consistent withprediabetes and should be confirmed with a follow-up test. For someone with known diabetes, a value <7%indicates that their diabetes is well controlled. [id number] should be individualized based on duration ofdiabetes, age, comorbid conditions, and otherconsiderations. This assay result is consistent with an increased riskof diabetes. Currently, no consensus exists regarding use ofhemoglobin A1c for diagnosis of diabetes for children. Plan of Care Name Dates Details Planned Observations Planned Goals not documented Instructions Name Dates Details Instructions not documented Encounters Appointment; ANNIA YOUNG P.A. Encounter Diagnosis: Problem not documented On: 20-Apr-2017 10:45 Appointment; MAICOL HOLDER P.A. Encounter Diagnosis: Problem not documented On: 23-Jan-2019 10:15 Appointment; MAICOL HOLDER P.A. Encounter Diagnosis: Problem not documented On: 25-Feb-2019 11:30
--- OUTSIDE RECORDS SUMMARY | 2019-06-09 01:20 | XMS REPORT | Summary of Care ---
Author Organization Unknown Address Unknown Phone Unavailable Encounter HQ Encntr_rockpaige(ELLEN) [id number] Date(s): 03/01/15 - 03/01/15 [facility] Outpatient Imaging - [address] [phone] Discharge Disposition: Home Physician Attending: Pino Rowe MD Vital Signs No data available for this section Problem List No data available for this section Allergies, Adverse Reactions, Alerts No data available for this section Medications No data available for this section Results No data available for this section Immunizations No data available for this section Procedures No data available for this section Social History No data available for this section Assessment and Plan No data available for this section
--- OUTSIDE RECORDS SUMMARY | 2019-06-09 01:20 | XMS REPORT | Summary of Care ---
Author Author [facility] Neurosurgery [facility] Organization [facility] Neurosurgery [facility] Address Unknown Phone Unavailable Encounter HQ Tuckerr_gómez(FIN) [id number] Date(s): 10/12/17 - 10/13/17 [facility] [address] [facility], [address] [phone] Vital Signs No data available for this [...]
--- OUTSIDE RECORDS SUMMARY | 2019-06-09 01:20 | XMS REPORT | Summary of Care ---
Author Author [facility] Organization [facility] Address Unknown Phone Unavailable Encounter HQ Nahed_gómez(FIN) [id number] Date(s): 09/24/17 - 10/23/17 [facility] Discharge Disposition: Home or Self Care Attending [...]
--- OUTSIDE RECORDS SUMMARY | 2019-06-09 01:20 | XMS REPORT | Summary of Care ---
Author Author [facility] Organization [facility] Address Unknown Phone Unavailable Encounter ALEX Ken(ELLEN) [phone] Date(s): 01/16/17 - 01/16/17 [facility] [address] [place] [address]- [phone] Discharge Disposition: Home or Self Care Attending Physician: Christiano Gonzales MD Referring Physician: Christiano Gonzales MD Vital Signs 1 2 3 Most recent to oldest [Reference Range]: 180.34 cm (01/15/17 2:41 PM) Height 110/74 mmHg (01/16/17 9:55 AM) 84/54 mmHg *LOW* (01/16/17 9:40 AM) 85/49 mmHg *LOW* (01/16/17 9:27 AM) Blood Pressure [90-140/60-90 mmHg] 20 BRMIN (01/16/17 9:55 AM) 17 BRMIN (01/16/17 9:40 AM) 13 BRMIN *LOW* (01/16/17 9:27 AM) Respiratory Rate [14-20 BRMIN] 91.364 kg (01/15/17 2:41 PM) Weight 28.09 m2 (01/15/17 2:41 PM) Body Mass Index Problem List Condition Effective Dates Status Health Status Informant HTN Resolved (hypertension)(Confi rmed) None of the Resolved time(Confirmed) Neck pain(Confirmed) Resolved Obesity(Confirmed) Active Allergies, Adverse Reactions, Alerts Substance Reaction Severity Status ibuprofen Active Medications albuterol-ipratropium 2.5-0.5 mg inhalation solution 3 mL, Route: NEB, Drug Form: SOLN, Dosing Weight 91.364, kg, ONCE, STAT, Start d ate: 01/16/17 8:32:00 CDT, Stop date: 01/16/17 8:32:00 CDT Notes: (Same as: Samia) Start Date: 01/16/17 Stop Date: 01/16/17 Status: Ordered Sodium Chloride 0.9% IV 500 mL 500 mL, Rate: 25 ml/hr, Infuse over: 20 hr, Route: IV, Dosing Weight 91.364 kg, Total Volume: 500, Start date: 01/16/17 8:32:00 CDT, Duration: 30 day, Stop date : 02/15/17 8:31:00 CDT Start Date: 01/16/17 Stop Date: 01/16/17 Status: Discontinued Results No data available for this section [...]
--- OUTSIDE RECORDS SUMMARY | 2019-06-09 01:20 | XMS REPORT | Summary of Care ---
Author Author [facility] Organization [facility] Address Unknown Phone Unavailable Encounter HQ Nahed_gómez(FIN) [id number] Date(s): 10/17/17 - 10/17/17 [facility] [address] [facility] [address] [place], [place] [address] [phone] Attending Physician: Kyaw Price MD Vital Signs [...]
--- OUTSIDE RECORDS SUMMARY | 2019-06-09 01:20 | XMS REPORT | Summary of Care ---
Author Author [facility] Address Unknown Phone Unavailable Encounter HQ Encntr_alipaige(FIN) [id number] Date(s): 07/18/16 - 08/16/16 [facility] Discharge Disposition: Home or Self Care [...]
[2019-06-09] MEDS ORDERED: METHYLPREDNISOLONE SOD SUCC 125 MG/2ML VIAL ONE (01:25)
--- OUTSIDE RECORDS SUMMARY | 2019-06-09 01:25 | XMS REPORT | Continuity of Care Document ---
Author Author TAPP Address Unknown Phone Unavailable Care Team Providers Care Crime Scene Specialist Name Role Phone [employer] Unavailable Unavailable Problems Problem Status Onset Date Classification Date Reported Comments Source Postlaminectomy syndrome, not elsewhere classified 11/27/2017 02/28/2018 [facility] M96.10 Active 09/24/2017 [facility] UNK Active 01/10/2017 [facility] M62.81 - MUSCLE WEAKNESS (GENERALIZED) M Active 05/24/2016 [facility] [place] M96.1 Active 10/29/2014 [facility] 338 - PAIN NEC Active 08/25/2014 [facility] [place] Weakness 02/28/2018 [facility] Anxiety states Resolved Problem 04/25/2019 [facility] Hemorrhoids, external Resolved Problem 04/25/2019 [facility] HTN (Confirmed) Resolved Problem 04/25/2019 [facility], [facility], [facility] Impotence, organic Resolved Problem 04/25/2019 [facility] Major depressive disorder, single episode Resolved Problem 04/25/2019 [facility] None of the time Resolved Problem 04/25/2019 [facility], [facility], RANJANAD Rigoberto, [facility], [facility] [place] Neck pain Resolved Problem 04/25/2019 [facility], [place], [facility], [facility] [place] Obesity Active Problem 04/25/2019 [facility], [facility] [place], [facility], [facility] [place], [facility], [facility] [place] Pneumonia Resolved Problem 04/25/2019 [facility] Decreased libido Resolved Problem 04/25/2019 [facility] Tinnitus Resolved Problem 04/25/2019 [facility] Hypertension Active Problem 03/25/2018 [facility] NECK Active [facility] [place] CERVICAL Active [facility] [place] Medications Medication Details Route Status Patient Instructions Ordering Provider Order Date Source testosterone cypionate 100 MG/ML Injectable Solution [Depo-testosterone] 1/2 mL, IM, qWeek, # 10 mL, 0 Refill(s) Active 03/04/2019 [facility] Albuterol 0.833 MG/ML / Ipratropium Harlan 0.167 MG/ML Inhalant Solution 3 mL, Route: NEB, Drug Form: SOLN, Dosing Weight 91.364, kg, ONCE, STAT, Start date: 01/16/17 8:32:00 CDT, Stop date: 01/16/17 8:32:00 CDTNotes: (Same as: Samia) Inactive 01/16/2017 [facility] Sodium Chloride 0.154 MEQ/ML Injectable Solution 500 mL, Rate: 25 ml/hr, Infuse over: 20 hr, Route: IV, Dosing Weight 91.364 kg, Total Volume: 500, Start date: 01/16/17 8:32:00 CDT, Duration: 30 day, Stop date: 02/15/17 8:31:00 CDT Inactive 01/16/2017 [facility] Acetaminophen With Codeine (Tylenol With Codeine #3 Tablet) 1 Each Tablet, 300 Mg Oral Every 6 Hours as needed for Pain Active 07/06/2016 [facility] Carisoprodol (Soma) 350 Mg Tablet, 350 Mg Oral Every 6 Hours as needed for Muscle Spasms Active 07/06/2016 [facility] Pseudoephedrine Hcl (Sudafed 12 Hour) 120 Mg Tablet.er, 120 Mg Oral As Needed Active 07/06/2016 [facility] Aleve , 220 Mg Oral As Needed Active 03/12/2015 [facility] Ascorbic Acid (Angie-C) 120 Gm Crystals, 1 Dose Oral Daily Active 03/09/2015 [facility] D-Methorphan/Pe/Acetaminophen (Tylenol Cold Multi-Symp Caplet) 1 Each Tablet, Oral As Needed Active 03/09/2015 [facility] Fexofenadine Hcl (Johana Allergy) 180 Mg Tablet As Needed Active [facility] Testosterone (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 03/01/2015 [facility] [place] [facility] cervical wo contrast MRI MRI CERVICAL [...] significant foraminal stenosis as above. 03/01/2015 [facility] [place] [facility] cervical wo contrast MRI MRI CERVICAL [...] Medical Group Height 180.34 cm 03/04/2019 [facility] Systolic (mm Hg) 110 01/16/2017 [facility] Diastolic (mm Hg) 74 01/16/2017 [facility] Respitory Rate 20 01/16/2017 [facility] Systolic (mm Hg) 84 01/16/2017 [facility] Diastolic (mm Hg) 54 01/16/2017 [facility] Respitory Rate 17 01/16/2017 [facility] Systolic (mm Hg) 85 01/16/2017 [facility] Diastolic (mm Hg) 49 01/16/2017 [facility] Respitory Rate 13 01/16/2017 [facility] Height 180.34 cm 01/15/2017 [facility] Weight 91.364 01/15/2017 [facility] BMI Calculated 28.09 01/15/2017 [facility] Encounters Location Location Details Encounter Type Encounter Number Reason For Visit Attending Provider ADM Date DC Date Status Source [facility] [place] [facility] [id number] Santiago Hammond 08/27/2014 08/28/2014 [facility] [place] [facility] [place] [facility] Di[facility] Services [id number] Pino Rowe 03/01/2015 03/02/2015 [facility] [place] Outpatient [id number] GAURI BAE 05/19/2016 Active [facility] [place] Out[facility] [id number] Pj Caldera 05/27/2016 05/28/2016 [facility] [place] Outpatient [id number] PJ CALDERA 05/31/2016 [facility] [place] [facility] Patients [id number] Pj Caldera 06/15/2016 07/15/2016 [facility] [place] [facility] [place] [facility] Therapy Patients [id number] Pj Caldera 07/18/2016 08/17/2016 [facility] [place] Outpatient [id number] PJ CALDERA 08/14/2016 Active [facility] [place] Out[facility] Diag Services [id number] Pj Caldera 08/22/2016 08/23/2016 [facility] [place] Outpatient [id number] PJ CALDERA 08/30/2016 Active [facility] Outpatient [id number] MENDEL WHITAKER 08/30/2016 Active [facility] Outpatient [id number] MENDEL WHITAKER 08/31/2016 Active [facility] Outpatient [id number] MENDEL WHITAKER 09/27/2016 [facility] [place] [facility] Patients [id number] Mendel Whitaker 10/10/2016 11/09/2016 [facility] [place] Outpatient [id number] MENDEL WHITAKER 11/01/2016 Active [facility] Outpatient [id number] PJ CALDERA 11/01/2016 Active [facility] Outpatient [id number] PJ DAMIR 11/13/2016 [facility] [id number] MENDEL WHITAKER 12/15/2016 [facility] Outpatient [id number] MENDEL WHITAKER 01/12/2017 Active [facility] Outpatient [id number] Christiano Gonzales 01/16/2017 01/16/2017 [facility] Outpatient [id number] ISAIAH CHAUHAN 01/23/2017 Active [facility] [place] [id number] MENDEL WHITAKER 02/16/2017 Active [facility] Outpatient [id number] MENDEL WHITAKER 03/30/2017 Active [facility] Phone Message [id number] 09/12/2017 09/14/2017 [facility] Phone Message [id number] 09/13/2017 09/15/2017 [facility] OP Therapy Patients [id number] Ravin Alan 09/24/2017 10/24/2017 [facility] Phone Message [id number] 10/12/2017 10/14/2017 [facility] [id number] MENDEL WHITAKER 10/17/2017 Active [facility] Ambulatory Pre-Reg [id number] Mendel Whitaker 10/17/2017 10/17/2017 [facility] OP Therapy Patients [id number] Ravin Alan 10/24/2017 11/23/2017 [facility] Departed Emergency Room [id number] SUSAN CRUZ MD 03/24/2018 03/25/2018 [facility] Outpatient [id number] Rodrigo Rao 03/04/2019 [facility] [place] [facility] [id number] Trevin Fletcher 03/04/2019 03/05/2019 [facility] Outpatient [id number] Rodrigo Rao 04/22/2019 Active [facility] S[facility] Outpatient [id number] Trevin Fletcher 04/22/2019 04/23/2019 [facility] Outpatient [id number] Rodrigo Rao 07/15/2019 Active [facility] S[facility] Procedures Procedure Code Date Perfomer Comments Source Injection into facet joint of cervical spine using fluoroscopic guidance 121924730 01/23/2017 [facility] Injection into facet joint of cervical spine using fluoroscopic guidance [id number] 01/23/2017 [facility] Injection into facet joint of cervical spine using fluoroscopic guidance [id number] 01/23/2017 [facility] Operation [id number] [facility] Operation [id number] [facility] [place] Operation [id number] [facility] Operation [id number] [facility] [place] Operation [id number] [facility] [place] Operation [id number] [facility] Operation [id number] [facility] Assessment and Plan No Data Provided for This Section Plan of Care Plan of Care Date Source Discharge Date 03/25/18 12:05am Disposition HOME, SELF-CARE Condition at Discharge Stable Instructions/Education Provided Hypertension Forms Provided Work/School Excuse Prescriptions See Medication Section Referrals OSKAR HOLLAND Address: [address] [place] [address] Additional Instructions/Education FOLLOW UP WITH PRIMARY CARE PHYSICAN SCHEDULED. 03/25/2018 [facility] Social History Social History Date Source Social [...] 03/11/2015 10:36am Not Applicable Not Applicable 03/25/2018 [facility] Social History TypeResponse Substance Abuse Use: None. Alcohol Current Smoking Status Never smoker; Exposure to Tobacco Smoke None; Cigarette Smoking Last 365 Days No; Reg Smoking Cessation Counseling No [facility]12[facility] Social History TypeResponse Substance Abuse Use: None. Alcohol Current Smoking Status Never smoker; Exposure to Tobacco Smoke None; Cigarette Smoking Last 365 Days No; Reg Smoking Cessation Counseling No entered on: 03/30/17 01/12/2017 [facility] Social History TypeResponse Substance [...] No; Reg Smoking Cessation Counseling No 01/12/2017 [facility] Social History TypeResponse Substance Abuse Use: None. Alcohol Current Smoking Status Never smoker; Exposure to Tobacco Smoke None; Cigarette Smoking Last 365 Days No; Reg Smoking Cessation Counseling No 11/01/2016 [facility] [place] Social History TypeResponse Smoking Status Never smoker; [...] yes, is advance directive on file with [facility]? No 03/11/15 10:36am If not on file with [facility] will patient provide a copy? No 08/27/16 11:32pm 03/25/2018 [facility] Functional Status No Data Provided for This Section
--- OUTSIDE RECORDS SUMMARY | 2019-06-09 01:25 | XMS REPORT | Clinical Summary ---
Author Author [employer] [facility] [employer] Address Unknown Phone Unavailable Care Team Providers Care Military Communications Specialist Name Role Phone Horace Vargas MD PCP [...] Phone Address Plan / Dates Group HMO/PP[facility]-P THCARE resent CHOICE/CHO ICE + Advance Directives Patient has advance care planning documents on file. For more information, shiela schmitz contact: [facility] [address] [place] [id number]
[2019-06-09] MEDS ORDERED: METHYLPREDNISOLONE SOD SUCC 125 MG/2ML VIAL IM ONE (01:30)
== END 2019-06-09 01:43 | disposition home or self-care (01) ==
LOC: ER 01:22
DX: R21 Rash and other nonspecific skin eruption (principal); T36.0X4A Poisoning by penicillins, undetermined, initial encounter; I10 Essential (primary) hypertension; M54.2 Cervicalgia; G89.29 Other chronic pain
CPT/HCPCS: 96372; 99282; J2930

== ENCOUNTER 2023-03-27 04:05 | Emergency (ER) | payer OTHER ==
[~2023-03-27] VITALS: Ht 180.3 cm; Wt 83.0 kg
[2023-03-27 04:26] LABS: BASOPHILS # (AUTO) 0.1 (0.0-0.1); BASOPHILS % 0.7 % (0.0-1.0); EOSINOPHILS # (AUTO) 0.3 (0.0-0.4); EOSINOPHILS % 3.2 % (0.0-6.0); HEMATOCRIT 50.6 % (38.2-49.6); HEMOGLOBIN 17.6 g/dL (14.0-18.0); LYMPHOCYTES # (AUTO) 2.9 (1.0-3.2); LYMPHOCYTES % 35.8 % (18.0-39.1); MEAN CORPUSCULAR HEMOGLOBIN 29.7 pg (28-32); MEAN CORPUSCULAR HGB CONC 34.8 g/dL (31-35); MEAN CORPUSCULAR VOLUME 85.3 fL (81-99); MONOCYTES # (AUTO) 0.8 (0.2-0.8); MONOCYTES % 10.3 % (4.4-11.3); NEUTROPHILS # (AUTO) 4.1 (2.1-6.9); NEUTROPHILS % 49.6 % (38.7-80.0); PLATELET COUNT 223 x10e3/uL (140-360); RED BLOOD COUNT 5.93 x10e6/uL (4.3-5.7)
[2023-03-27 04:45] LABS: ALBUMIN 4.4 g/dL (3.5-5.0); ALBUMIN/GLOBULIN RATIO 1.2 (0.8-2.0); ANION GAP 14.5 mmol/L (8-16); CALCIUM 9.5 mg/dL (8.4-10.2); CREATININE, SERUM 1.24 mg/dL (0.72-1.25); POTASSIUM 3.5 mmol/L (3.5-5.1)
[2023-03-27 05:57] VITALS: BP 159/103; O2SAT 100
== END 2023-03-27 05:30 | disposition home or self-care (01) ==
LOC: ER 04:12
DX: F41.0 Panic disorder [episodic paroxysmal anxiety] (principal); I10 Essential (primary) hypertension; F41.9 Anxiety disorder, unspecified; M54.2 Cervicalgia; G89.29 Other chronic pain; R94.31 Abnormal electrocardiogram [ECG] [EKG]
CPT/HCPCS: 36415; 71045; 80053; 82550; 82553; 83880; 84484; 85025; 93005; 99284